=== PATIENT | female | born 1980 | race Caucasian/White ===

== ENCOUNTER 2020-11-07 12:40 | Emergency (ER) | payer BC ==
[~2020-11-07] VITALS: Ht 157.5 cm; Wt 99.8 kg
[~2020-11-07 12:40] MED LIST: FLONASE 0.05% N16 GM; OFLOXACIN5 M1 AD; TAMIFLU75 MG PO; TESSALON PERLE100 MG PO; ZOFRAN4 MG PO
== END 2020-11-07 16:15 | disposition home or self-care (01) ==
LOC: ER1 12:40
DX: U07.1 COVID-19 (principal); Z23 Encounter for immunization
CPT/HCPCS: 71045; 99284; M0243